=== PATIENT | male | born 1955 | race Caucasian/White ===

== ENCOUNTER → 2018-11-26 08:23 | Outpatient (CLI) | payer SELFPAY ==
--- NOTE | 2018-11-26 08:28 | CT_ITS ---
STUDY: CT TEMPORAL BONES WITHOUT CONTRAST - ATTN: I.A.C. S REASON FOR EXAM: Male, 63 years old. Hearing loss. Left cholesteatoma removed 2 years ago. RADIATION DOSAGE (If Supplied By Facility): CTDIvol = ( 74.34 ) mGy, DLP = ( 769.06 ) mGycm TECHNIQUE: The patient was scanned in a multi detector CT scanner. Transaxial imaging was performed without the administration of intravenous contrast material. Sagittal and coronal images were reconstructed. Individualized dose optimization techniques were used for this CT. COMPARISON: 03/20/2016. FINDINGS: RIGHT TEMPORAL BONE Normal right internal auditory canal. Normal visualized ossicles and tympanic cavity. Normal right cochlea and semicircular canals. Normal vestibular aqueduct. Normal right petrous carotid artery. Normal right jugular fossa. Normal right mastoid air cells. Normal right petrous apex. LEFT TEMPORAL BONE Normal left internal auditory canal. Left canal wall up mastoidectomy. No abnormal soft tissue density in the left mastoid bowl. There is, however, prominent soft tissue density in the left middle air space measuring 1.1 x 0.8 cm with truncation of the scutum but no erosion of the tegmen. 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 No visible left middle ear ossicles which may have been completely obliterated and eroded by highly suspicious for recurrent cholesteatoma. Normal left cochlea and semicircular canals. Normal vestibular aqueduct. Normal left petrous carotid artery. Normal right jugular fossa. Normal left petrous apex. OPINION: 1. Highly suspicious recurrent cholesteatoma in the left middle ear space measuring 1.1 x 0.8 cm with interval left canal wall up mastoidectomy. No soft tissue density in the left mastoid bowl. 2. Normal CT of the right temporal bone. 3. No other additional findings or changes since 03/20/2016. Electronically Signed: Itz Dennison MD at 12:28 EDT , Service support , CT/Orb Sella Post Fossa Ear w/o
== END ==
PROVIDERS: Family Provider Family Medicine; PCP Family Medicine; Referring Provider Otolaryngology; Visit Provider Otolaryngology
DX: H91.92 Unspecified hearing loss, left ear (principal)
CPT/HCPCS: 70480

== ENCOUNTER → 2020-03-30 12:53 | Outpatient (CLI) | payer SELFPAY ==
--- NOTE | 2020-03-30 13:18 | CT_ITS ---
STUDY: CT TEMPORAL BONES WITHOUT CONTRAST - ATTN: I.A.C. S REASON FOR EXAM: Male, 65 years old. LEFT SIDED CHOLESTEATOMA. PT HAS HAD ONE REMOVED BEFORE RADIATION DOSAGE (If Supplied By Facility): CTDIvol = ( 67.58 ) mGy, DLP = ( 721.85 ) mGycm TECHNIQUE: The patient was scanned in a multi detector CT scanner. Transaxial imaging was performed without the administration of intravenous contrast material. Sagittal and coronal images were reconstructed. Individualized dose optimization techniques were used for this CT. COMPARISON: Comparison is made with prior study dated 11/26/2018. FINDINGS: RIGHT TEMPORAL BONE Normal right internal auditory canal. Normal visualized ossicles and tympanic cavity. Normal right cochlea and semicircular canals. Normal vestibular aqueduct. Normal right petrous carotid artery. Normal right jugular fossa. Normal right mastoid air cells. Normal right petrous apex. LEFT TEMPORAL BONE Normal left internal auditory canal. The patient is status post left mastoidectomy. Partial opacification of the mastoid air cells. There is a 6.9 mm x 3.2 mm x 6.7 mm soft tissue density in the attic of the left middle ear cavity. This is suspicious for a recurrent cholesteatoma. This has decreased in size as compared to prior study. The left middle ear ossicles have been removed. CT/Orb Sella Post Fossa Ear w/o IMPRESSION: Persistent cholesteatoma in the left middle ear cavity although it has decreased in size. Partial opacification of the left mastoid air cells. Electronically Signed: Neeraj Barnett MD at 13:54 EST , Service support ,
== END ==
PROVIDERS: PCP Family Medicine; Referring Provider Otolaryngology; Visit Provider Otolaryngology
DX: H71.02 Cholesteatoma of attic, left ear (principal)
CPT/HCPCS: 70480